=== PATIENT | female | born 1985 | race Two or more races ===

== ENCOUNTER 2017-04-12 17:10 | Emergency (ER) | payer BC ==
[~2017-04-12 17:10] MED LIST: CLINDAMYCIN300 M1 PO; IBU600 M1 PO; LAC PO; TYLENOL EXTRA500 M2 PO
[2017-04-12 18:09] LABS: PLATELET COUNT 208 x10^3mcL (130-400); RED CELL DISTRIBUTION WIDTH 14.4 % (11.5-14.5)
[2017-04-12 18:10] LABS: BASOPHIL % 0 % (0-2)
[2017-04-12 18:39] LABS: CALCIUM 8.6 mg/dL (8.5-10.1); CARBON DIOXIDE 22.6 mmol/L (21-32); CHLORIDE SERUM 100 mmol/L (98-107); CREATININE SERUM 0.4 mg/dL (0.6-1.0); GFR1 > 60 mL/min; GLUCOSE SERUM 95 mg/dL (74-106); POTASSIUM SERUM 3.7 mmol/L (3.5-5.1); SODIUM SERUM 139 mmol/L (136-145)
[2017-04-12 19:25] VITALS: BP 118/70
== END 2017-04-12 19:25 | disposition short-term general hospital (02) ==
LOC: ED 17:10
PROVIDERS: Emergency Medicine
DX: O03.9 Complete or unspecified spontaneous abortion without complication (principal); Z3A.17 17 weeks gestation of pregnancy
CPT/HCPCS: J2405; J2765; J7030; Q0092

== ENCOUNTER 2017-05-04 17:13 | Emergency (ER) | payer BC ==
[~2017-05-04] VITALS: Ht 152.4 cm; Wt 49.0 kg
[2017-05-04 20:13] LABS: BASOPHIL % 0.4 % (0-2); PLATELET COUNT 368 x10^3mcL (130-400); RED CELL DISTRIBUTION WIDTH 14.1 % (11.5-14.5)
[2017-05-04 20:41] LABS: microscopic required? YES; urine erythrocyte 3+ (NEGATIVE)
[2017-05-04 21:15] VITALS: BP 101/62
== END 2017-05-04 21:15 | disposition home or self-care (01) ==
LOC: ED 17:13
PROVIDERS: Emergency Medicine Emergency Medical Services
DX: N93.9 Abnormal uterine and vaginal bleeding, unspecified (principal)
CPT/HCPCS: 36415; Q0092